=== PATIENT | female | born 1970 | race Caucasian/White ===

== ENCOUNTER 2016-09-03 16:57 | Emergency (ER) | payer BC ==
[~2016-09-03] VITALS: Ht 162.6 cm; Wt 99.8 kg
--- OUTSIDE RECORDS SUMMARY | 2016-09-03 17:02 | XMS REPORT ---
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 Active Assessment Encounter for screening breast examination Z12.39 Active Assessment Encounter for screening mammogram for breast cancer Z12.31 Active Problem Lateral epicondylitis of right elbow M77.11 Active Problem Hypertension I10 Active Problem Menopausal symptoms N95.1 Active Assessment Screening for STD (sexually transmitted disease) Z11.3 Active Assessment Encounter for screening for malignant neoplasm of cervix Z12.4 Active Problem Nicotine dependence F17.200 Active Assessment Encounter for well woman exam Z01.419 Active Medications Medication Code System Code Instructions Start Date End Date Status Dosage Nystatin [facility] [address]-01 [id number] UNIT/GM Externally Twice a day Mar 20, 2016 apply thin layer to rash Losartan Potassium [facility] [address]-47 100 MG Orally Once a day December 12, 2015 1 tablet Amlodipine Besylate [facility] [id number] 10 mg Orally Once a day 1 tablet Procedures Procedure Coding System Code Date No Charge CPT-4 39148 Mar 20, 2016 TRICHOMONAS ASSAY W/OPTIC CPT-4 64575 Mar 20, 2016 SPECIMEN HANDLING CPT-4 85021 Mar 20, 2016 CULTURE, BACTERIA, OTHER CPT-4 74951 Mar 20, 2016 VANEGAS VAG, DNA, DIR PROBE CPT-4 66755 Mar 20, 2016 Preventive Care Est Pt. Age 40-64 CPT-4 46935 Mar 20, 2016 Vital Signs Date/Time: Mar 20, 2016 Blood Pressure Systolic 170 mmHg Weight 224.0 lbs Height 64 in BMI 38.45 Index Blood Pressure Diastolic 100 mmHg Results No Known Results Summary Purpose [employer] Submission
[2016-09-03] MEDS ORDERED: LIDOCAINE 2% 20 ML (XYLOCAINE) VIAL INJ ONE (17:15)
--- NOTE | 2016-09-03 17:36 | ED Upper Extremity ---
General Chief Complaint: Laceration Stated Complaint: R HAND LAC Source: patient Exam Limitations: no limitations History of Present Illness Time seen by provider: 17:32 Initial Comments Laceration to the volar side of the right thumb from a piece of glass. She is uncertain of when her last tetanus shot was. States that she was picking up trash and there was a piece of glass that cut her. Onset: just prior to arrival Severity: moderate Pain/Injury Location: right thumb Modifying Factors: Worse With Movement Allergies and Home Medications Allergies Coded Allergies: No Known Drug Allergies (Unverified , 09/03/16) Constitutional: see HPI EENTM: see HPI Respiratory: no symptoms reported Cardiovascular: no symptoms reported Genitourinary: no symptoms reported Musculoskeletal: see HPI Skin: no symptoms reported Psychiatric/Neurological: No Symptoms Reported Past Nfribfy-Ceyuze-Rctosp Hx Patient Social History Recent Foreign Travel: No Contact w/Someone Who Travel: No Physical Exam Vital Signs Vital Sign - Last 12Hours 09/03/16 17:14 Pulse 92 Resp 18 B/P 134/89 Pulse Ox 98 O2 Delivery Room Air Capillary Refill : General Appearance: WD/WN no apparent distress HEENT: PERRL/EOMI normal ENT inspection Neck: non-tender full range of motion Respiratory: no respiratory distress no accessory muscle use Gastrointestinal: non tender soft Elbow/Forearm: normal inspection, non-tender Wrist: Yes normal inspection, Yes non-tender, Yes abrasions Hand: Right, laceration (3 cm laceration to the volar side of the thumb. This is to the subcutaneous tissues. She maintains full flexion and extension abilities of the thumb as well as distal sensation.) Neurologic/Tendon: normal sensation normal motor functions normal tendon functions Neurologic/Psychiatric: alert normal mood/affect oriented x 3 Skin: normal color warm/dry Laceration Repair : Wound Location: Upper Extremities Wound Length (cm): 3 Wound's Depth, Shape: sub Q Wound Explored: clean Irrigated w/ Saline (ccs): 30 Anesthesia: 1% Lidocaine Suture: Prolene Suture Size: 5-0 Number of Sutures: 9 Layer Closure?: 1 Number Deep Layer Sutures: 0 Progress Local anesthesia with 3 mL of 1 percent lidocaine without epinephrine. Wound then scrubbed with chlorhexidine/saline solution. Wound then irrigated with 30 mL of same. Wound then closed with 9 simple interrupted sutures size 5-0 Prolene. Progress/Results/Core Measures Results/Orders My Orders Orders-MARLEN KERN APRN Lidocaine 2% Injection 20 Ml (Xylocaine (09/03/16 17:15) Dipht,Pertuss(Acell),Tet Adult (Boostrix (09/03/16 17:45) Cephalexin Capsule (Keflex Capsule) (09/03/16 17:45) Medications Given in ED Current Medications Medications Dose Ordered Sig/Bradley Route Start Time Stop Time Status Last Admin Dose Admin Cephalexin HCl 500 mg ONCE ONCE PO 09/03/16 17:45 09/03/16 17:46 DC 09/03/16 17:46 500 MG Diphtheria/ Tetanus/Acell Pertussis 0.5 ml ONCE ONCE IM 09/03/16 17:45 09/03/16 17:46 DC 09/03/16 17:48 0.5 ML Lidocaine HCl 2 ml ONCE ONCE INJ 09/03/16 17:15 09/03/16 17:16 DC 09/03/16 17:24 2 ML Vital Signs/I&O Vital Sign - Last 12Hours 09/03/16 17:14 Pulse 92 Resp 18 B/P 134/89 Pulse Ox 98 O2 Delivery Room Air Departure Impression Impression: Primary Impression: Thumb laceration Qualified Code: S61.011A - Laceration without foreign body of right thumb without damage to nail, initial encounter Disposition: 01 HOME, SELF-CARE Condition: Stable Departure-Patient Inst. Decision time for Depature: 17:34 Referrals: JEROD MCKAY MD (PCP/Family) Primary Care Physician Patient Instructions: Laceration Repair With Stitches (DC) Add. Discharge Instructions: 1. Keep the dressing in place until tomorrow. After that you may take R dressing off and replace it with a simple Band-Aid. You may start washing it with soap and water gently allowing water to run over it tomorrow. However do not soak it in water such as a bathtub, sink, hot tub until stitches have been removed. Return to the emergency room in 10 days to have the stitches removed at no charge. You do not need an appointment. Return to ER before then for any sign of infection such as redness swelling All discharge instructions reviewed with patient and/or family. Voiced understanding. Work/School Note: Work Release Form Date Seen in the Emergency Department: Sep 03, 2016 Return to Work: Sep 04, 2016 Other Restrictions Listed Below: Keep a Band-Aid over the laceration for the next 2 weeks MARLEN KERN APRN Sep 03, 2016 17:36
[2016-09-03] MEDS ORDERED: TETANUS,DIPTH,PERTUSS P/F (BOOSTRIX) 0.5 ML VIAL IM ONE (17:45)
[2016-09-03] MEDS ORDERED: CEPHALEXIN 250 MG (KEFLEX) CAP PO ONE (17:45)
[2016-09-03 18:07] VITALS: BP 134/89
== END 2016-09-03 18:02 | disposition home or self-care (01) ==
LOC: EDUNIT# 16:57 → ER 16:58
DX: S61.011A Laceration without foreign body of right thumb without damage to nail, initial encounter (principal); Z23 Encounter for immunization; W25.XXXA Contact with sharp glass, initial encounter; Y99.8 Other external cause status
CPT/HCPCS: 12002; 90471; 90715

== ENCOUNTER 2016-09-13 12:12 | Emergency (ER) | payer BC ==
[~2016-09-13] VITALS: Ht 162.6 cm; Wt 99.8 kg
[2016-09-13 12:44] VITALS: BP 134/77
== END 2016-09-13 12:45 | disposition home or self-care (01) ==
LOC: EDUNIT# 12:12 → ER 12:15
DX: S61.019D Laceration without foreign body of unspecified thumb without damage to nail, subsequent encounter (principal)

== ENCOUNTER 2017-01-05 07:11 | Emergency (ER) | payer BC ==
[~2017-01-05] VITALS: Ht 162.6 cm; Wt 97.1 kg
[2017-01-05] MEDS ORDERED: PRD20T (07:40)
[2017-01-05] MEDS ORDERED: DICL75TA2 (07:40)
[2017-01-05] MEDS ORDERED: AMLO10TA2 (07:40)
[2017-01-05] MEDS ORDERED: LOSA100T28 (07:40)
[2017-01-05] MEDS ORDERED: CYCL10TA9 PO (08:11)
--- NOTE | 2017-01-05 08:11 | ED Back Pain ---
General Chief Complaint: Back Problems Stated Complaint: BACK PAIN Nursing Triage Note: AMB TO ROOM REPORTS WAS GETTING OUT OF CHAIR ON TUE HAD SEVERE BACK PAIN . WENT TO [facility] WAS GIVEN MEDS WAS OK INTILL TODAY AT WORK ONSET OF LUCERO HIP PAIN Nursing Sepsis Screen: No Definite Risk Source of Information: Patient Exam Limitations: No Limitations History of Present Illness Time Seen by Provider: 08:01 Initial Comments Patient comes ER with a history of about 5 days of back pain that was doing better on conservative therapy, diclofenac and prednisone from her primary care physician but her sciatica started acting up this morning when she got to work at [employer]. She does not lift a lot of heavy things but she states that the pain did radiate down her back into her leg just below the knee. She says she's never had imaging. She says that there is no history of any trauma, incontinence , paresthesias, numbness, tingling, weakness. She is able to walk. She will complete her 5 day steroid pack tomorrow. She did not take her diclofenac this morning. She does not think she'll be able to return to work tomorrow. The next day of work after the stay. Allergies and Home Medications Allergies Coded Allergies: ketorolac (Verified Allergy, Unknown, MAKES HER DO CRAZY THINGS, 01/05/17) Home Medications Amlodipine Besylate 10 Mg Tablet, #30 (Reported) Cyclobenzaprine HCl 10 Mg Tablet, 10 MG PO Q8H PRN for BACK PAIN, #20 Ref 0 Prescribed by: DALTON RANKIN on 01/05/17 0811 Diclofenac Sodium 75 Mg Tablet., #60 (Reported) Losartan Potassium 100 Mg Tablet, #30 (Reported) Prednisone 20 Mg Tab, #10 (Reported) Constitutional: No chills, No fever, No malaise EENTM: see HPI Respiratory: No cough, No short of breath Cardiovascular: No chest pain, No edema, No syncope Gastrointestinal: No abdominal pain, No nausea, No vomiting Genitourinary: No incontinence Musculoskeletal: see HPI, back pain, No joint swelling, muscle pain, muscle stiffness Skin: No pruritus, No rash Psychiatric/Neurological: Denies Anxiety, Denies Depressed, Denies Headache, Denies Numbness, Denies Paresthesia, Denies Tingling, Denies Tremors, Denies Weakness Past Bukzhsb-Uiqntp-Xmifan Hx Patient Social History Alcohol Use: Occasionally Uses Recreational Drug Use: No Smoking Status: Current Everyday Smoker Recent Foreign Travel: No Contact w/Someone Who Travel: No Recent Infectious Disease Expo: No Recent Hopitalizations: No Surgeries HX Surgeries: No Surgeries: Section Respiratory Hx Respiratory Disorders: No Cardiovascular Hx Cardiac Disorders: Yes Cardiac Disorders: Hypertension Neurological Hx Neurological Disorders: No Genitourinary Hx Genitourinary Disorders: No Gastrointestinal Hx Gastrointestinal Disorders: No Musculoskeletal Hx Musculoskeletal Disorders: No Endocrine Hx Endocrine Disorders: No HEENT HX ENT Disorders: No Cancer Hx Cancer: No Psychosocial Hx Psychiatric Problems: No Physical Exam Vital Signs Vital Sign - Last 12Hours 01/05/17 07:28 Temp 97.9 Pulse 82 Resp 18 B/P (MAP) 140/96 Pulse Ox 96 O2 Delivery Room Air Capillary Refill : Less Than 3 Seconds General Appearance: No Apparent Distress, WD/WN HEENT: PERRL/EOMI, Pharynx Normal Neck: Full Range of Motion, Normal Inspection, Non Tender, Supple Cardiovascular: Regular Rate, Rhythm, No Edema, No Murmur, Normal Peripheral Pulses Respiratory: Chest Non Tender, Lungs Clear, Normal Breath Sounds, No Accessory Muscle Use Peripheral Pulses: 3+ Dorsalis Pedis (R), 3+ Left Dors-Pedis (L), 3+ Radial Pulses (R), 3+ Radial Pulses (L) Gastrointestinal: Normal Bowel Sounds, Soft Back: Normal Inspection, No CVA Tenderness, Vertebral Tenderness (lumbar and paraspinous region) Extremity: Normal Capillary Refill, No Pedal Edema Neurologic/Psychiatric: Alert, Oriented x3, No Motor/Sensory Deficits, Normal Mood/Affect, synthetic soil blocks pulper II-XII Norm as Tested Skin: Normal Color, Warm/Dry Lymphatic: No Adenopathy Laceration Repair : Suture Size: 5-0 Progress/Results/Core Measures Results/Orders My Orders Orders - DALTON RANKIN Methylprednisolone Acetate Inj (Depo-Med (01/05/17 08:15) Ketorolac Injection (Toradol Injection) (01/05/17 08:15) Medications Given in ED Current Medications Medications Dose Ordered Sig/Bradley Route Start Time Stop Time Status Last Admin Dose Admin Methylprednisolone Acetate 40 mg ONCE ONCE IM 01/05/17 08:15 01/05/17 08:16 DC 01/05/17 08:41 40 MG Vital Signs/I&O Vital Sign - Last 12Hours 01/05/17 01/05/17 07:28 08:46 Temp 97.9 Pulse 82 82 Resp 18 18 B/P (MAP) 140/96 Pulse Ox 96 96 O2 Delivery Room Air Blood Pressure Mean: 111 Progress Note : Time: 12:07 Progress Note Recurrent extend her steroids with a Depo-Medrol injection as well as a history of ketorolac since she did not take her diclofenac this morning but the patient refused ketorolac that she was prior allergic to it. Told her she can go home and take her diclofenac then. The patient was satisfied with this plan. She would need to follow up with her PCP and was given strict return precautions. Departure Impression Impression: Primary Impression: Back pain Qualified Codes: M54.42 - Lumbago with sciatica, left side; M54.41 - Lumbago with sciatica, right side Disposition: 01 HOME, SELF-CARE Condition: Improved Departure-Patient Inst. Decision time for Depature: 08:08 Referrals: EJROD MCKAY MD (PCP/Family) Primary Care Physician Patient Instructions: Low Back Pain (DC) Add. Discharge Instructions: You're having low back pain which will be relieved with some rest, heat, icy hot , stretching exercises and we will extend your steroid with another shot today that will last for 3 days. This may cause some difficulty sleeping, flushing in the face and a little jitteriness and some people. These are normal side effect to steroids. You may restart your diclofenac tonight. If your back is feeling tight or spasming you may also use the Cyclogyl endocrine once every 8 hours as needed. Do not mix this medicine with alcohol as it may cause drowsiness. Follow -up the following week with your primary care physician if you're not getting better. If you're having new or worsening symptoms, weakness or inability to walk or losing continence of your bowel or bladder then you should return to the ER. All discharge instructions reviewed with patient and/or family. Voiced understanding. Scripts Cyclobenzaprine HCl (Cyclobenzaprine HCl) 10 Mg Tablet 10 MG PO Q8H Y for BACK PAIN, #20 TAB 0 Refills Prov: DALTON RANKIN 01/05/17 Copy Copies To 1: JEROD MCKAY MD, TITUS J Jan 05, 2017 08:10
[2017-01-05] MEDS ORDERED: methylPREDNISolone 40 MG/ML (DEPO MEDROL) VIAL IM ONE (08:15)
[2017-01-05] MEDS ORDERED: KETOROLAC 15 MG/ML VIAL IM ONE (08:15)
[2017-01-05 08:46] VITALS: BP 140/96
== END 2017-01-05 08:45 | disposition home or self-care (01) ==
LOC: EDUNIT# 07:11 → ER 07:15
DX: M54.9 Dorsalgia, unspecified (principal); I10 Essential (primary) hypertension; F17.210 Nicotine dependence, cigarettes, uncomplicated
CPT/HCPCS: 99281